=== PATIENT | female | born 1985 | race Caucasian/White ===

== ENCOUNTER → 2024-04-29 08:20 | Outpatient (REF) | payer OTHER, SELFPAY | LOC: WDC 08:20 | PROVIDERS: ATTENDING PHYSICIAN Nurse Practitioner Primary Care | DX: N63.10 Unspecified lump in the right breast, unspecified quadrant (principal); N63.12 Unspecified lump in the right breast, upper inner quadrant | CPT/HCPCS: 76642 ==

== ENCOUNTER → 2024-05-06 14:25 | Outpatient (REF) | payer OTHER, SELFPAY | LOC: HWRAD 14:25 | PROVIDERS: ATTENDING PHYSICIAN Nurse Practitioner Primary Care | DX: K76.0 Fatty (change of) liver, not elsewhere classified (principal) | CPT/HCPCS: 76700 ==